=== PATIENT | male | born 1955 | race African-American/Black ===

== ENCOUNTER 2017-11-10 13:06 | Day surgery (SDC) | payer OTHER ==
[~2017-11-10] VITALS: Ht 185.4 cm; Wt 126.4 kg
[~2017-11-10 13:06] MED LIST: GLUCOPHAGE1000 MG PO; LASIX 20MG TABL20 MG PO; ZESTRIL 20MG TA20 MG PO; ZOCOR 40MG40 MG PO
[2017-11-10] MEDS ORDERED: LIPITOR 80MG80 MG PO (13:24)
[2017-11-10] MEDS ORDERED: NORVASC 10MG10 MG PO (13:25)
[2017-11-10] MEDS ORDERED: ASPIRIN E.C. 8181 MG PO (13:26)
[2017-11-10] MEDS ORDERED: PRINZIDE 25 MG-1 TAB PO (13:26)
[2017-11-10] MEDS ORDERED: CENTRUM SILVER1 TA2 PO (13:27)
[2017-11-10] MEDS ORDERED: ONGLYZA5 MG PO (13:27)
[2017-11-10] MEDS ORDERED: [UNRECOGNIZED DRUG - OTHER] PO (13:28)
[2017-11-10] MEDS ORDERED: MASON NATURAL1200 MG PO (13:28)
[2017-11-10] MEDS ORDERED: [UNRECOGNIZED DRUG - OTHER] PO (13:29)
[2017-11-10] MEDS ORDERED: [UNRECOGNIZED DRUG - OTHER] PO (13:29)
[2017-11-10] MEDS ORDERED: SUN CHLORELLA PO (13:30)
[2017-11-10 13:37] VITALS: BP 142/82; PULSE 81; TEMP 98.5
[2017-11-10 15:55] VITALS: BP 140/89; PULSE 75; TEMP 97.7
[2017-11-10 16:10] VITALS: BP 122/76; PULSE 67
[2017-11-10 16:25] VITALS: BP 124/85; PULSE 67
[2017-11-10 16:40] VITALS: BP 117/80; PULSE 78
== END 2017-11-10 17:07 | disposition home or self-care (01) ==
LOC: SDCO 13:06
DX: Z86.010 Personal history of colon polyps (principal); K57.30 Diverticulosis of large intestine without perforation or abscess without bleeding; Z79.82 Long term (current) use of aspirin; Z79.899 Other long term (current) drug therapy; E11.9 Type 2 diabetes mellitus without complications; Z79.84 Long term (current) use of oral hypoglycemic drugs; I10 Essential (primary) hypertension; E78.00 Pure hypercholesterolemia, unspecified
CPT/HCPCS: J2250; J3010; J7030

== ENCOUNTER 2018-01-02 15:36 | Emergency (ER) | payer OTHER ==
[~2018-01-02] VITALS: Ht 185.4 cm; Wt 116.4 kg
[~2018-01-02 15:36] MED LIST changes: +ASPIRIN E.C. 8181 MG PO; +CENTRUM SILVER1 TA2 PO; +LIPITOR 80MG80 MG PO; +MASON NATURAL1200 MG PO; +NORVASC 5MG5 MG/TAB PO; +ONGLYZA5 MG PO; +PRINZIDE 25 MG-1 TAB PO; +SUN CHLORELLA PO; +[UNRECOGNIZED DRUG - OTHER] PO; +[UNRECOGNIZED DRUG - OTHER] PO; +[UNRECOGNIZED DRUG - OTHER] PO
[2018-01-02 15:48] VITALS: TEMP 98.9
[2018-01-02 16:39] LABS: BASO % 0.4 % (0.0-2.0); EOS # 0.2 (0.0-0.7); EOS % 3.2 % (0-4.0); GRAN # 4.6 (1.4-6.5); GRAN % 64.8 % (42.2-75.2); HEMOGLOBIN 10.2 g/dl (13.5-18.0); LYMPH # 1.7 (1.2-3.4); LYMPH % 23.7 % (20.0-51.0); MEAN CELL VOLUME 85 fl (80.0-100.0); MEAN CORPUSCULAR HEMOGLOBIN 27 pg (27.0-31.0); MEAN CORPUSCULAR HGB CONC 32 g/dl (33.0-37.0); MEAN PLATELET VOLUME 9.6 fl (7.4-10.4); MONO # 0.5 (0.1-0.6); MONO % 7.6 % (1.7-9.3); PLATELET COUNT 353 K/mm3 (130-400); RED BLOOD COUNT 3.75 M/mm3 (4.20-5.60); REDCELL DISTRIBUTION WIDTH-CV 15.6 % (11.5-14.5)
[2018-01-02 16:57] LABS: ALBUMIN 3.4 gm/dL (3.5-5.0); BILIRUBIN,TOTAL 0.3 mg/dL (0.0-1.0); C-REACTIVE PROTEIN 1.1 mg/dL (0.0-0.9); CALCIUM 9.3 mg/dL (8.4-10.2); CREATININE, serum 1.11 mg/dL (0.66-1.25); POTASSIUM 3.8 mmol/L (3.4-5.0); TOTAL PROTEIN 7.1 gm/dL (6.4-8.2)
[2018-01-02] MEDS ORDERED: SEPTRA DS 8001 TAB PO (18:30)
[2018-01-02 18:46] VITALS: BP 132/80; PULSE 72
== END 2018-01-02 19:10 | disposition home or self-care (01) ==
LOC: COL.ER 15:36
PROVIDERS: Emergency Medicine
DX: M79.89 Other specified soft tissue disorders (principal); R60.0 Localized edema; E11.9 Type 2 diabetes mellitus without complications; I25.10 Atherosclerotic heart disease of native coronary artery without angina pectoris; E78.5 Hyperlipidemia, unspecified; I10 Essential (primary) hypertension; Z79.82 Long term (current) use of aspirin; Z79.84 Long term (current) use of oral hypoglycemic drugs; Z95.5 Presence of coronary angioplasty implant and graft

== ENCOUNTER 2018-04-24 12:03 | Outpatient (RCR) | payer OTHER ==
[~2018-04-24 12:03] MED LIST changes: +SEPTRA DS 8001 TAB PO
== END 2018-04-26 | disposition still patient (30) ==
LOC: COL.CR
DX: Z48.812 Encounter for surgical aftercare following surgery on the circulatory system (principal); Z95.5 Presence of coronary angioplasty implant and graft

== ENCOUNTER 2018-05-01 12:01 | Outpatient (RCR) | payer OTHER | END 2018-05-01 14:35 | LOC: COL.CR 12:01 | DX: Z48.812 Encounter for surgical aftercare following surgery on the circulatory system (principal); Z95.1 Presence of aortocoronary bypass graft ==

== ENCOUNTER 2018-07-31 13:36 | Outpatient (RCR) | payer SELFPAY | END 2018-08-02 | disposition home or self-care (01) | LOC: COL.CR | DX: Z02.89 Encounter for other administrative examinations (principal) ==

== ENCOUNTER 2018-10-30 14:38 | Outpatient (RCR) | payer SELFPAY | END 2018-11-01 | disposition home or self-care (01) | LOC: COL.CR | DX: Z02.89 Encounter for other administrative examinations (principal) ==

== ENCOUNTER 2019-01-20 12:53 | Outpatient (RCR) | payer SELFPAY | END 2019-01-31 | disposition home or self-care (01) | LOC: COL.CR | DX: Z02.89 Encounter for other administrative examinations (principal) ==

== ENCOUNTER 2019-04-28 14:02 | Outpatient (RCR) | payer SELFPAY | END 2019-05-02 | disposition home or self-care (01) | LOC: COL.CR | DX: Z02.89 Encounter for other administrative examinations (principal) ==

== ENCOUNTER 2019-06-30 11:01 | Outpatient (RCR) | payer SELFPAY | END 2019-08-01 | disposition home or self-care (01) | LOC: COL.CR | DX: Z02.89 Encounter for other administrative examinations (principal) ==

== ENCOUNTER 2019-11-29 15:59 | Outpatient (RCR) | payer SELFPAY | END 2019-12-09 | disposition home or self-care (01) | LOC: COL.CR | DX: Z02.89 Encounter for other administrative examinations (principal) ==

== ENCOUNTER 2020-01-11 15:07 | Emergency (ER) | payer OTHER ==
[~2020-01-11] VITALS: Ht 185.4 cm; Wt 119.1 kg
[2020-01-11 15:13] VITALS: TEMP 98.1
[2020-01-11 16:23] LABS: BASO % 0.3 % (0.0-2.0); EOS # 0.2 (0.0-0.7); EOS % 2.2 % (0-4.0); GRAN # 6.8 (1.4-6.5); HEMATOCRIT 45.3 % (42.0-52.0); HEMOGLOBIN 14.6 g/dl (13.5-18.0); LYMPH # 2.2 (1.2-3.4); MEAN CELL VOLUME 85 fl (80.0-100.0); MEAN CORPUSCULAR HEMOGLOBIN 27 pg (27.0-31.0); MEAN CORPUSCULAR HGB CONC 32 g/dl (33.0-37.0); MEAN PLATELET VOLUME 10.2 fl (7.4-10.4); MONO # 0.7 (0.1-0.6); MONO % 7.1 % (1.7-9.3); PLATELET COUNT 425 K/mm3 (130-400); RED BLOOD COUNT 5.34 M/mm3 (4.20-5.60); REDCELL DISTRIBUTION WIDTH-CV 13.6 % (11.5-14.5)
[2020-01-11 16:42] LABS: ALBUMIN 4.3 gm/dL (3.5-5.0); BILIRUBIN,TOTAL 0.6 mg/dL (0.0-1.0); C-REACTIVE PROTEIN 1.5 mg/dL (0.0-0.9); CALCIUM 9.6 mg/dL (8.4-10.2); CREATININE, serum 1.08 (0.66-1.25); POTASSIUM 4.4 mmol/L (3.4-5.0); TOTAL PROTEIN 8.3 gm/dL (6.4-8.2)
[2020-01-11 16:49] LABS: ERYTHROCYTE SEDIMENTATION RATE 19 mm/hr (0-30)
[2020-01-11 22:30] VITALS: BP 160/92; PULSE 67
== END 2020-01-11 22:30 | disposition short-term general hospital (02) ==
LOC: COL.ER 15:07
PROVIDERS: Emergency Medicine
DX: E11.628 Type 2 diabetes mellitus with other skin complications (principal); L03.116 Cellulitis of left lower limb; E11.40 Type 2 diabetes mellitus with diabetic neuropathy, unspecified; G90.09 Other idiopathic peripheral autonomic neuropathy; I25.10 Atherosclerotic heart disease of native coronary artery without angina pectoris; I10 Essential (primary) hypertension; E78.5 Hyperlipidemia, unspecified; E66.9 Obesity, unspecified; Z68.34 Body mass index [BMI] 34.0-34.9, adult; Z95.1 Presence of aortocoronary bypass graft; Z79.84 Long term (current) use of oral hypoglycemic drugs; Z79.82 Long term (current) use of aspirin
CPT/HCPCS: J2543

== ENCOUNTER 2020-08-11 17:04 | Outpatient (RCR) | payer SELFPAY | END 2020-10-01 | disposition home or self-care (01) | LOC: COL.CR | DX: Z02.89 Encounter for other administrative examinations (principal) ==